=== PATIENT | female | born 1940 | race Native Hawaiian/Other Pacific Islander ===

== ENCOUNTER 2016-10-31 08:10 | Outpatient (CLI) | payer OTHER ==
[2016-10-31 08:52] LABS: PLATELET COUNT 264 K/uL (152-353)
[2016-10-31 09:10] LABS: POTASSIUM 4.1 mmol/L (3.6-5.2); SODIUM 136 mmol/L (136-145)
== END 2016-10-31 19:57 | disposition home or self-care (01) ==
LOC: LABW 08:10
PROVIDERS: Internal Medicine Cardiovascular Disease
DX: E78.4 Other hyperlipidemia (principal); Z79.899 Other long term (current) drug therapy; Z51.81 Encounter for therapeutic drug level monitoring
CPT/HCPCS: 36415; 80048; 80061; 80076; 85027

== ENCOUNTER 2017-05-08 07:41 | Outpatient (CLI) | payer OTHER ==
[2017-05-08 08:32] LABS: SODIUM 139 mmol/L (136-145)
[2017-05-08 08:34] LABS: PLATELET COUNT 255 K/uL (152-353)
== END 2017-05-08 08:45 | disposition home or self-care (01) ==
LOC: LABW 07:41
PROVIDERS: Internal Medicine Cardiovascular Disease
DX: E78.4 Other hyperlipidemia (principal); Z79.899 Other long term (current) drug therapy; Z51.81 Encounter for therapeutic drug level monitoring
CPT/HCPCS: 36415; 80048; 80061; 80076; 85027

== ENCOUNTER → 2017-11-11 07:25 | Outpatient (CLI) | payer OTHER ==
[2017-11-11 08:45] LABS: POTASSIUM 3.4 mmol/L (3.6-5.2)
[2017-11-11 08:56] LABS: PLATELET COUNT 267 K/uL (152-353)
== END | disposition home or self-care (01) ==
LOC: LABW 07:25
PROVIDERS: Internal Medicine
DX: I10 Essential (primary) hypertension (principal); E03.8 Other specified hypothyroidism; E78.00 Pure hypercholesterolemia, unspecified; R82.99 Other abnormal findings in urine
CPT/HCPCS: 36415; 80053; 80061; 81000; 84439; 84443; 85027; 87077; 87086; 87088; 87185

== ENCOUNTER 2018-06-17 15:41 | Outpatient (CLI) | payer OTHER | END 2018-06-17 19:47 | disposition home or self-care (01) | LOC: RAD 15:41 | DX: M54.5 Low back pain (principal) ==

== ENCOUNTER 2018-11-09 09:39 | Outpatient (CLI) | payer OTHER | END 2018-11-09 21:03 | disposition home or self-care (01) | LOC: RESP 09:39 | DX: R06.09 Other forms of dyspnea (principal) ==

== ENCOUNTER 2019-10-25 07:48 | Outpatient (CLI) | payer OTHER ==
[2019-10-25 08:24] LABS: PLATELET COUNT 247 K/uL (152-353)
== END 2019-10-25 17:00 | disposition home or self-care (01) ==
LOC: LABW 07:48
PROVIDERS: Internal Medicine
DX: I10 Essential (primary) hypertension (principal); M06.80 Other specified rheumatoid arthritis, unspecified site; M32.8 Other forms of systemic lupus erythematosus
CPT/HCPCS: 36415; 80053; 80061; 81000; 84439; 84443; 85027; 85651; 86038; 86140

== ENCOUNTER 2020-09-03 09:12 | Outpatient (CLI) | payer OTHER | END 2020-09-03 23:11 | disposition home or self-care (01) | LOC: RAD 09:12 | PROVIDERS: ATTEND Nurse Practitioner Family | DX: M06.09 Rheumatoid arthritis without rheumatoid factor, multiple sites (principal); M81.0 Age-related osteoporosis without current pathological fracture ==

== ENCOUNTER 2020-10-24 07:38 | Outpatient (CLI) | payer OTHER ==
[2020-10-24 08:11] LABS: PLATELET COUNT 235 K/uL (152-353)
[2020-10-24 09:00] LABS: POTASSIUM 3.9 mmol/L (3.6-5.2)
== END 2020-10-24 21:36 | disposition home or self-care (01) ==
LOC: LABW 07:38
PROVIDERS: ATTEND Internal Medicine
DX: I10 Essential (primary) hypertension (principal); E03.8 Other specified hypothyroidism; E78.00 Pure hypercholesterolemia, unspecified
CPT/HCPCS: 36415; 80053; 80061; 81000; 84439; 84443; 85027

== ENCOUNTER 2021-04-04 15:30 | Emergency (ER) | payer OTHER | END 2021-04-04 17:55 | disposition home or self-care (01) | LOC: ED 15:30 | DX: S83.8X2A Sprain of other specified parts of left knee, initial encounter (principal); X50.1XXA Overexertion from prolonged static or awkward postures, initial encounter; Y92.098 Other place in other non-institutional residence as the place of occurrence of the external cause | CPT/HCPCS: 99283 ==

== ENCOUNTER 2021-07-22 09:35 | Outpatient (CLI) | payer OTHER | END 2021-07-22 21:07 | disposition home or self-care (01) | LOC: US 09:35 | PROVIDERS: ATTEND Internal Medicine | DX: M25.562 Pain in left knee (principal); M79.89 Other specified soft tissue disorders ==

== ENCOUNTER 2021-11-05 12:04 | Emergency (ER) | payer OTHER ==
[~2021-11-05] VITALS: Ht 160 cm; Wt 77.1 kg
[2021-11-05 12:04] VITALS: TEMP 98.6
[2021-11-05 13:04] LABS: PLATELET COUNT 156 K/uL (152-353)
[2021-11-05 13:11] LABS: POTASSIUM 4.2 mmol/L (3.6-5.2)
[2021-11-05 16:33] VITALS: BP 142/68
== END 2021-11-05 16:33 | disposition home or self-care (01) ==
LOC: ED 12:04
PROVIDERS: Emergency Medicine
DX: R53.1 Weakness (principal); U07.1 COVID-19
CPT/HCPCS: 80053; 81000; 85027; 87502; 87635; 93005; 99283; U0003

== ENCOUNTER 2021-11-10 07:03 | Inpatient (IN) | payer OTHER ==
[~2021-11-10] VITALS: Ht 160 cm; Wt 75.0 kg
[2021-11-10] VITALS (16 sets, daily range): BP systolic 133–178; BP diastolic 43–88; TEMP 98.4–98.8
[2021-11-10 08:27] LABS: PLATELET COUNT 206 K/uL (152-353)
[2021-11-10 08:37] LABS: POTASSIUM 4.1 mmol/L (3.6-5.2)
[2021-11-11] VITALS (7 sets, daily range): BP systolic 132–178; BP diastolic 58–77; TEMP 97.6–99.3; Ht 160 cm; Wt 75.0 kg
[2021-11-11] MEDS ORDERED: IBANDRONATE SO150 MG PO (16:26)
[2021-11-11] MEDS ORDERED: LEVO0.1224 PO (16:27)
[2021-11-11] MEDS ORDERED: COZAAR25 MG PO (16:28)
[2021-11-11] MEDS ORDERED: CLOP75TA2 PO (16:28)
[2021-11-11] MEDS ORDERED: CARV6.25 PO (16:29)
[2021-11-11] MEDS ORDERED: HYDROXYCHLOROQUINE PO (16:30)
[2021-11-11] MEDS ORDERED: METHO2.5 PO (16:31)
[2021-11-11] MEDS ORDERED: BACLOFEN5 MG PO (16:32)
[2021-11-11] MEDS ORDERED: D35000 UNIT PO (16:33)
[2021-11-11] MEDS ORDERED: KP FOLIC ACID1 MG PO (16:33)
[2021-11-11] MEDS ORDERED: LIPITOR10 MG PO (16:34)
[2021-11-11] MEDS ORDERED: NEURONTIN 100M100 MG PO (16:34)
[2021-11-12] VITALS (7 sets, daily range): BP systolic 134–150; BP diastolic 56–70; TEMP 98.1–99.5
[2021-11-12 05:21] LABS: PLATELET COUNT 226 K/uL (152-353)
[2021-11-12 05:41] LABS: POTASSIUM 3.6 mmol/L (3.6-5.2)
[2021-11-13] VITALS (7 sets, daily range): BP systolic 131–173; BP diastolic 53–85; TEMP 97.6–98.6
[2021-11-14] VITALS: BP 160/57; TEMP 98.1
[2021-11-14 04:00] VITALS: BP 156/75; TEMP 97.7
[2021-11-14 04:40] LABS: PLATELET COUNT 227 K/uL (152-353)
[2021-11-14 05:00] LABS: POTASSIUM 3.2 mmol/L (3.6-5.2)
[2021-11-14 08:00] VITALS: BP 152/62; TEMP 97.9
[2021-11-14 12:00] VITALS: BP 160/66; TEMP 97.6
[2021-11-14 16:00] VITALS: BP 172/69; TEMP 98.2
[2021-11-14 20:00] VITALS: BP 161/63; TEMP 97.9
[2021-11-15] VITALS (7 sets, daily range): BP systolic 140–174; BP diastolic 59–83; TEMP 97.6–98.6
[2021-11-15 05:25] LABS: PLATELET COUNT 228 K/uL (152-353)
[2021-11-15 05:26] LABS: POTASSIUM 3.1 mmol/L (3.6-5.2)
[2021-11-16 03:45] VITALS: BP 165/57; TEMP 97.9
[2021-11-16 05:19] LABS: PLATELET COUNT 254 K/uL (152-353)
[2021-11-16 08:00] VITALS: BP 108/67; TEMP 98.3
[2021-11-16 12:00] VITALS: BP 147/62; TEMP 98.2
[2021-11-16 16:00] VITALS: BP 132/56; TEMP 98
[2021-11-16 20:03] VITALS: BP 168/71; TEMP 98.9
[2021-11-17] VITALS (7 sets, daily range): BP systolic 125–149; BP diastolic 57–88; TEMP 97.2–98.5
[2021-11-17 05:27] LABS: PLATELET COUNT 241 K/uL (152-353)
[2021-11-17 06:03] LABS: POTASSIUM 3.4 mmol/L (3.6-5.2)
[2021-11-18 04:11] VITALS: BP 164/76; TEMP 97.09
[2021-11-18 05:25] LABS: PLATELET COUNT 258 K/uL (152-353)
[2021-11-18 08:28] VITALS: BP 156/79; TEMP 98.4
[2021-11-18 12:00] VITALS: BP 130/66; TEMP 97.5
[2021-11-18 16:00] VITALS: BP 138/64; TEMP 98.1
[2021-11-18 20:00] VITALS: BP 139/67; TEMP 98.8
[2021-11-19] VITALS: BP 149/70; TEMP 99.4
[2021-11-19 04:00] VITALS: BP 109/57; TEMP 98.9
[2021-11-19 05:38] LABS: PLATELET COUNT 257 K/uL (152-353)
[2021-11-19 08:04] VITALS: BP 131/68; TEMP 98.1
[2021-11-19 12:00] VITALS: BP 113/62; TEMP 98.3
[2021-11-19 16:00] VITALS: BP 125/68; TEMP 98.1
[2021-11-19 20:00] VITALS: BP 165/86; TEMP 97.8
[2021-11-20] VITALS: BP 162/74; TEMP 98.1
[2021-11-20 04:00] VITALS: BP 154/77; TEMP 97.7
[2021-11-20 05:32] LABS: PLATELET COUNT 253 K/uL (152-353)
[2021-11-20 05:36] LABS: POTASSIUM 3.9 mmol/L (3.6-5.2)
[2021-11-20 08:00] VITALS: BP 167/84; TEMP 97.6
[2021-11-20 12:00] VITALS: BP 128/78; TEMP 98
[2021-11-20 16:00] VITALS: BP 150/69; TEMP 98.7
[2021-11-20 20:28] VITALS: BP 146/68; TEMP 98.2
[2021-11-21 00:19] VITALS: BP 151/67; TEMP 98
[2021-11-21 03:56] VITALS: BP 147/78; TEMP 98.2
[2021-11-21 08:00] VITALS: BP 162/69; TEMP 98.7
[2021-11-21 12:00] VITALS: BP 125/62; TEMP 98.7
[2021-11-21 16:00] VITALS: BP 135/65; TEMP 98.7
[2021-11-21 20:00] VITALS: BP 165/88; TEMP 98.9
[2021-11-22 00:06] VITALS: BP 138/78; TEMP 98
[2021-11-22 04:12] VITALS: BP 135/53; TEMP 98.3
[2021-11-22 08:00] VITALS: BP 173/66; TEMP 98.1
[2021-11-22 12:00] VITALS: BP 123/49; TEMP 98.1
[2021-11-22 14:50] LABS: PLATELET COUNT 240 K/uL (152-353)
[2021-11-22 15:02] LABS: POTASSIUM 3.8 mmol/L (3.6-5.2)
[2021-11-22 16:00] VITALS: BP 128/59; TEMP 98.2
[2021-11-22 20:00] VITALS: BP 138/69; TEMP 98.3
[2021-11-23] VITALS: BP 169/64; TEMP 98.5
[2021-11-23 04:00] VITALS: BP 149/65; TEMP 97.9
[2021-11-23 08:00] VITALS: BP 122/62; TEMP 97.8
[2021-11-23 12:00] VITALS: BP 130/61; TEMP 97.7
[2021-11-23 16:00] VITALS: BP 140/6; TEMP 98.2
[2021-11-23 20:00] VITALS: BP 143/74; TEMP 98.5
[2021-11-24] VITALS: BP 153/81; TEMP 98.1
[2021-11-24 04:00] VITALS: BP 121/61; TEMP 97.7
[2021-11-24 08:00] VITALS: BP 122/61; TEMP 97.4
[2021-11-24 12:00] VITALS: BP 129/71; TEMP 97.5
[2021-11-24 16:00] VITALS: BP 123/68; TEMP 98.1
[2021-11-24 20:00] VITALS: BP 128/68; TEMP 98.3
[2021-11-25] VITALS: BP 149/74; TEMP 98.2
[2021-11-25 04:00] VITALS: BP 122/64; TEMP 97.6
[2021-11-25 08:00] VITALS: BP 143/74; TEMP 98.1
[2021-11-25 12:00] VITALS: BP 143/63; TEMP 98.1
[2021-11-25 16:00] VITALS: BP 118/73; TEMP 98.7
[2021-11-25 20:24] VITALS: BP 145/67; TEMP 98.7
[2021-11-26 00:03] VITALS: BP 181/87; TEMP 97.8
[2021-11-26 04:07] VITALS: BP 132/58; TEMP 98.1
[2021-11-26 08:00] VITALS: BP 151/53; TEMP 98.1
[2021-11-26 12:00] VITALS: BP 123/46; TEMP 98.4
[2021-11-26 16:00] VITALS: BP 133/62; TEMP 98
[2021-11-26 20:00] VITALS: BP 135/63; TEMP 98
[2021-11-27] VITALS: BP 141/55; TEMP 98.3
[2021-11-27 04:00] VITALS: BP 101/52; TEMP 97.9
[2021-11-27 08:00] VITALS: BP 157/76; TEMP 98.1
[2021-11-27 12:00] VITALS: BP 149/62; TEMP 98.2
[2021-11-27 16:00] VITALS: BP 134/61; TEMP 99
[2021-11-27 20:00] VITALS: BP 125/67; TEMP 98.6
[2021-11-28] VITALS: BP 164/79; TEMP 97.7
[2021-11-28 04:00] VITALS: BP 140/56; TEMP 97.9
[2021-11-28 04:37] LABS: PLATELET COUNT 148 K/uL (152-353)
[2021-11-28 04:52] LABS: POTASSIUM 3.8 mmol/L (3.6-5.2)
[2021-11-28 08:00] VITALS: BP 156/66; TEMP 98.3
[2021-11-28 12:00] VITALS: BP 145/60; TEMP 98.3
[2021-11-28 16:00] VITALS: BP 146/70; TEMP 97.8
[2021-11-28 20:00] VITALS: BP 152/72; TEMP 98.4
[2021-11-29] VITALS: BP 146/65; TEMP 97.9
[2021-11-29 04:00] VITALS: BP 129/64; TEMP 97.6
[2021-11-29 08:00] VITALS: BP 161/66; TEMP 97.4
[2021-11-29 12:00] VITALS: BP 146/65; TEMP 97.7
[2021-11-29 16:00] VITALS: BP 142/72; TEMP 97.6
[2021-11-29 19:44] VITALS: BP 139/66; TEMP 98.9
[2021-11-30] VITALS (7 sets, daily range): BP systolic 106–142; BP diastolic 40–74; TEMP 97.6–98.5
[2021-12-01 04:22] VITALS: BP 130/70; TEMP 97.7
[2021-12-01 08:00] VITALS: BP 148/64; TEMP 98.2
[2021-12-01 12:00] VITALS: BP 130/68; TEMP 98
[2021-12-01 16:00] VITALS: BP 150/62; TEMP 98.2
[2021-12-01 20:00] VITALS: BP 153/72; TEMP 98.2
[2021-12-01 23:56] VITALS: BP 142/70; TEMP 98.3
[2021-12-02 04:00] VITALS: BP 143/68; TEMP 97.9
[2021-12-02 07:23] LABS: PLATELET COUNT 132 K/uL (152-353)
[2021-12-02 07:48] LABS: POTASSIUM 4.5 mmol/L (3.6-5.2)
[2021-12-02 08:00] VITALS: BP 163/69; TEMP 97.7
[2021-12-02 12:00] VITALS: BP 145/73; TEMP 97.9
[2021-12-02 16:00] VITALS: BP 141/70; TEMP 98
[2021-12-02 20:00] VITALS: BP 126/67; TEMP 98.5
[2021-12-03] VITALS: BP 156/63; TEMP 98
[2021-12-03 04:00] VITALS: BP 133/47; TEMP 98.1
[2021-12-03 08:00] VITALS: BP 134/42; TEMP 98.7
[2021-12-03 12:00] VITALS: BP 117/52; TEMP 97.7
[2021-12-03 16:00] VITALS: BP 147/71; TEMP 98.3
== END 2021-12-03 16:30 | disposition home health service (06) | DRG 177 ==
LOC: ED 07:03 → MED/SURG 12:15
PROVIDERS: Emergency Medicine Emergency Medical Services; Internal Medicine Endocrinology, Diabetes & Metabolism; ADMIT Internal Medicine; ATTEND Internal Medicine
DX: U07.1 COVID-19 (principal); J12.82 Pneumonia due to coronavirus disease 2019; J96.01 Acute respiratory failure with hypoxia; I25.10 Atherosclerotic heart disease of native coronary artery without angina pectoris; I10 Essential (primary) hypertension; E78.49 Other hyperlipidemia; M32.8 Other forms of systemic lupus erythematosus; E03.8 Other specified hypothyroidism; M81.8 Other osteoporosis without current pathological fracture
CPT/HCPCS: 36415; 36600; 80048; 80053; 82805; 84484; 85027; 85379; 87070; 87205; 87635; 93005; 94667; 94668; 94760; 96365; 96375; 99284; J0248; J0456; J0696; J1650; J1956; J2920; J2930; J8610; U0003

== ENCOUNTER 2021-12-18 09:21 | Outpatient (CLI) | payer OTHER ==
[~2021-12-18 09:21] MED LIST: BACLOFEN5 MG PO; CARV6.25 PO; CLOP75TA2 PO; COZAAR25 MG PO; D35000 UNIT PO; HYDROXYCHLOROQUINE PO; IBANDRONATE SO150 MG PO; KP FOLIC ACID1 MG PO; LEVO0.1224 PO; LIPITOR10 MG PO; METHO2.5 PO; NEURONTIN 100M100 MG PO
[2021-12-18 09:40] LABS: PLATELET COUNT 282 K/uL (152-353)
[2021-12-18 09:59] LABS: POTASSIUM 3.4 mmol/L (3.6-5.2)
== END 2021-12-18 19:24 | disposition home or self-care (01) ==
LOC: LAB 09:21
PROVIDERS: ATTEND Internal Medicine
DX: K57.92 Diverticulitis of intestine, part unspecified, without perforation or abscess without bleeding (principal)
CPT/HCPCS: 80053; 81000; 85027

== ENCOUNTER 2023-02-09 09:33 | Outpatient (CLI) | payer OTHER | END 2023-02-09 18:57 | disposition home or self-care (01) | LOC: RAD 09:33 | PROVIDERS: ATTEND Nurse Practitioner Family | DX: M06.09 Rheumatoid arthritis without rheumatoid factor, multiple sites (principal); M32.8 Other forms of systemic lupus erythematosus; M81.0 Age-related osteoporosis without current pathological fracture; M85.89 Other specified disorders of bone density and structure, multiple sites; Z79.899 Other long term (current) drug therapy ==